=== PATIENT | female | born 1965 | race Caucasian/White ===

== ENCOUNTER 2018-07-23 13:03 | Emergency (ER) | payer OTHER, MEDICAID, SELFPAY ==
[2018-07-23 13:15] VITALS: BP 131/87; PULSE 89; RESP 14; TEMP 36.7; O2SAT 95
[2018-07-23 13:44] LABS: Add Manual Diff / Slide Review NO; Basophils Absolute Auto 100 /uL (0-100); Basophils Percent Auto 0.4 % (0-2); Eosinophils Absolute Auto 200 /uL (0-450); Hematocrit 39.3 % (36-46); Hemoglobin 12.9 g/dL (12.0-16.0); Lymphocytes Absolute Auto 2500 /uL (1100-4500); Lymphocytes Percent Auto 22.1 % (25-40); Mean Corpuscular HGB Conc 32.8 % (30-36); Mean Corpuscular Hemoglobin 27.9 PG (26-34); Monocytes Absolute Auto 700 /uL (0-900); Monocytes Percent Auto 6.2 % (3-14); Neutrophils Absolute Auto 7900 /uL (1500-7000); Neutrophils Percent Auto 69.3 % (50-75); Platelet Count 304 X10^3/uL (150-400); Red Blood Cell Count 4.62 X10^6/uL (4.0-5.2); Red Cell Distribution Width 15.3 % (11.6-14.8); White Blood Cell Count 11.4 X10^3/uL (4.5-11.0)
[2018-07-23 13:57] LABS: BUN Creatinine Ratio 18.3 (6-22); Blood Urea Nitrogen 11 mg/dL (7-17); Calcium 9.3 mg/dL (8.4-10.2); Carbon Dioxide 31 mmol/L (22-32); Chloride 102 mmol/L (98-107); Estimated Glomerular Filt Rate > 60.0 mL/min (>60); Glucose 131 mg/dL (70-100); HEMOLYSIS < 15 (0-50); Potassium 3.8 mmol/L (3.4-5.1); Sodium 139 mmol/L (137-145)
[2018-07-23 14:13] LABS: Bacteria Urine None Seen
[2018-07-23 14:15] LABS: Appearance Urine UA CLEAR; Bilirubin Urine UA NEGATIVE (NEGATIVE); Color Urine UA YELLOW; Glucose Urine UA NEGATIVE (Negative); Ketones Urine UA TRACE (NEGATIVE); Leukocyte Esterase Urine UA TRACE (NEGATIVE); Nitrite Urine UA POSITIVE (Negative); Occult Blood Urine UA 3+ (Negative); Protein Urine UA 3+ (Negative); Specific Gravity Urine UA >=1.030 (1.000-1.035)
[2018-07-23 14:28] LABS: RBC Urine 10-30/HPF (0-5/HPF); WBC Urine 5-10/HPF (0-5/HPF)
[2018-07-23 14:29] LABS: Culture Indicated Urine Specimen Cultured
--- NOTE | 2018-07-23 14:43 | DI.US.S_ITS ---
PROCEDURE: US PELVIC COMPLETE INDICATIONS: HEAVY BLEEDING X 2 WEEKS TECHNIQUE: Real-time scanning was performed of the pelvic organs, with image documentation. Additional endovaginal scanning was necessary due to incomplete visualization of the adnexal and endometrial structures by transabdominal scanning. COMPARISON: None. FINDINGS: Transabdominal scanning: Limited scanning through the kidneys shows no hydronephrosis. No pathologic free abdominal or pelvic fluid. Endovaginal scanning: Uterus: Uterus is normal in size at 8.1 x 5.1 x 7.1 cm. The endometrium measures 5 mm in combined thickness. Hypoechoic uterine lesions are seen, which are attributed to fibroids. They measure as follows: Mid anterior uterus, intramural, 1.5 x 0.9 x 1.7 cm Mid anterior uterus, intramural, 1.6 x 0.9 x 1 cm Ovaries: The right ovary measures 2.4 x 1.4 x 1.3 cm and demonstrates an unremarkable sonographic appearance. The left ovary is not seen. IMPRESSION: No imaging explanation is found for this patient's presenting symptoms. Intramural uterine fibroids are seen. Dictated by: Jason Murray M.D. on 07/23/2018 at 15:37 Approved by: Jason Murray M.D. on 07/23/2018 at 15:39
--- NOTE | 2018-07-23 14:46 | ED_ITS ---
HPI - Female Genitourinary <REGGIE Beltran-BC - Last Filed: 07/23/18 17:08> General Chief complaint: Vaginal Bleeding Stated complaint: Cough x 2wks Time Seen by Provider: 07/23/18 14:16 Source: patient and family Mode of arrival: ambulatory History of Present Illness HPI Narrative: The patient is a 52-year-old female with history of obesity who presents with chief complaint of heavy vaginal bleeding x2 weeks. She has no sexually transmitted infection concerns. She denies any vaginal discharge. She states she is bleeding through approximately 2 pads an hour. She states she has used to 5 pads so far today, just before 3:00 p.m.. She states she was a little bit lightheaded and dizzy when she stood up this morning. She had slight amount of nausea. She denies any current dizziness or nausea. She denies any control methods. She states she has had a dry cough for 2 weeks, possibly related to seasonal allergies. She states that her bleeding is worse when she is coughing. She states she had an episode like this back in her 30s. She states the hysterectomy was recommended, but she never followed through with that. She denies any history of fibroids, PCOS etc. Related Data Home Medications Medication Instructions Recorded Confirmed citalopram 40 mg PO DAILY 07/23/18 07/23/18 hydroxyzine pamoate 50 mg PO TID PRN 07/23/18 07/23/18 lisinopril 20 mg PO DAILY 07/23/18 07/23/18 Allergies Allergy/AdvReac Type Severity Reaction Status Date / Time Penicillins Allergy Intermediate Hives Verified 07/23/18 13:22 Review of Systems <ROXI Beltran - Last Filed: 07/23/18 17:08> Review of Systems GENERAL: Denies chills, fatigue, malaise, fever, sweats. HEENT: Denies sinus pain, ear pain, sore throat, difficulty swallowing, dizziness. RESPIRATORY: Denies dyspnea, cough, wheezing, hemoptysis, sputum. CARDIOVASCULAR: Denies chest pain, palpitations, orthopnea, edema, GASTROINTESTINAL: See HPI : See HPI MUSCULOSKELETAL: denies weakness, joint pain, or bony pain SKIN: Denies rash, skin lesions, or other NEUROLOGIC: Denies weakness, headache, numbness, change in speech, confusion, seizures, incoordination. PSYCHIATRIC: No concerning psychosocial issues. 12 point review of systems is negative except for those stated above PFSH <ROXI Beltran - Last Filed: 07/23/18 17:08> Medical History Anxiety (Acute) Hypertension (Acute) Social History Smoking Status: Never smoker Social History Smoking Status: Never smoker Exam <ROXI Beltran - Last Filed: 07/23/18 17:08> Narrative Exam Narrative: GENERAL: Obese female lying on stretcher HEAD: Atraumatic. Normocephalic. No temporal or scalp tenderness. EYES: Pupils equal round and reactive. Extraocular motions intact. No scleral icterus. No injection or drainage. ENT: Nose without bleeding, purulent drainage or septal hematoma. Throat without erythema, tonsillar hypertrophy or exudate. Uvula midline. Airway patent. NECK: Trachea midline. No JVD or lymphadenopathy. Supple, nontender, no meningeal signs. CARDIOVASCULAR: Regular rate and rhythm without murmurs, gallops, or rubs. RESPIRATORY: Clear to auscultation. Breath sounds equal bilaterally. No wheezes, rales, or rhonchi. No cough. No increased respiratory effort. No accessory muscle use. No stridor. GASTROINTESTINAL: Abdomen soft, non-tender, nondistended. Active bowel sounds all 4 quadrants No hepato-splenomegaly, or palpable masses. No guarding. EXTREMITIES: No clubbing, cyanosis, or edema. No joint tenderness, effusion, or edema noted. BACK: Nontender without deformity or crepitance. No flank tenderness. NEURO: AOx3. SKIN: No rash or erythema. Initial Vital Signs Initial Vital Signs: Vital Signs Temperature 98.1 F 07/23/18 13:15 Pulse Rate 89 07/23/18 13:15 Respiratory Rate 14 07/23/18 13:15 Blood Pressure 131/87 07/23/18 13:15 Pulse Oximetry 95 07/23/18 13:15 <Emily Howe DO - Last Filed: 07/26/18 21:47> Initial Vital Signs Initial Vital Signs: Vital Signs Temperature 98.1 F 07/23/18 13:15 Pulse Rate 89 07/23/18 13:15 Respiratory Rate 14 07/23/18 13:15 Blood Pressure 131/87 07/23/18 13:15 Pulse Oximetry 95 07/23/18 13:15 Course <ROXI Beltran - Last Filed: 07/23/18 17:08> Orders Ordered: ED Orders 07/23/18 13:35 Basic Metabolic Panel Stat CBC [Complete Blood Count AUTO DIFF] Stat 07/23/18 14:00 Urinalysis and Microscopic Stat Urine Culture Stat 07/23/18 14:43 US pelvic complete Stat Vital Signs - 8 hr 07/23/18 13:15 07/23/18 16:41 Temperature 98.1 F Pulse Rate 89 78 Pulse Rate [Orthostatic Lying] 78 Pulse Rate [Orthostatic Sitting] 75 Pulse Rate [Orthostatic Standing] 86 Respiratory Rate 14 20 Blood Pressure 131/87 Blood Pressure [Orthostatic Lying] 130/72 Blood Pressure [Orthostatic Sitting] 145/95 H Blood Pressure [Orthostatic Standing] 142/95 H Blood Pressure [Right Arm] 130/72 Pulse Oximetry 95 95 <Emily Howe DO - Last Filed: 07/26/18 21:47> Orders Ordered: ED Orders 07/23/18 13:35 Basic Metabolic Panel Stat CBC [Complete Blood Count AUTO DIFF] Stat 07/23/18 14:00 Urinalysis and Microscopic Stat Urine Culture Stat 07/23/18 14:43 US pelvic complete Stat Vital Signs - 8 hr 07/23/18 13:15 07/23/18 16:41 Temperature 98.1 F Pulse Rate 89 78 Pulse Rate [Orthostatic Lying] 78 Pulse Rate [Orthostatic Sitting] 75 Pulse Rate [Orthostatic Standing] 86 Respiratory Rate 14 20 Blood Pressure 131/87 Blood Pressure [Orthostatic Lying] 130/72 Blood Pressure [Orthostatic Sitting] 145/95 H Blood Pressure [Orthostatic Standing] 142/95 H Blood Pressure [Right Arm] 130/72 Pulse Oximetry 95 95 MDM - Female Genitourinary <ROXI Beltran - Last Filed: 07/23/18 17:08> Lab Data Result diagrams: 07/23/18 13:35 07/23/18 13:35 Lab Results 07/23/18 07/23/18 07/23/18 Range/Units 13:35 13:35 14:00 WBC 11.4 H (4.5-11.0) X10^3/uL RBC 4.62 (4.0-5.2) X10^6/uL Hgb 12.9 (12.0-16.0) g/dL Hct 39.3 (36-46) % MCV 85.0 (80-100) fL MCH 27.9 (26-34) PG MCHC 32.8 (30-36) % RDW 15.3 H (11.6-14.8) % Plt Count 304 (150-400) X10^3/uL Neut % (Auto) 69.3 (50-75) % Lymph % (Auto) 22.1 L (25-40) % [place] % (Auto) 6.2 (3-14) % Eos % (Auto) 2.0 (2-4) % Baso % (Auto) 0.4 (0-2) % Neut # (Auto) 7900 H (3610-8685) /uL Lymph # (Auto) 2500 (2589-5306) /uL [place] # (Auto) 700 (0-900) /uL Eos # (Auto) 200 (0-450) /uL Baso # (Auto) 100 (0-100) /uL Sodium 139 (137-145) mmol/L Potassium 3.8 (3.4-5.1) mmol/L Chloride 102 (98-107) mmol/L Carbon Dioxide 31 (22-32) mmol/L BUN 11 (7-17) mg/dL Creatinine 0.60 (0.52-1.04) mg/dL Estimated GFR > 60.0 (>60) mL/min BUN/Creatinine Ratio 18.3 (6-22) Glucose 131 H (70-100) mg/dL Calcium 9.3 (8.4-10.2) mg/dL Urine Color Yellow Urine Appearance Clear Urine pH 5.0 (4.5-8.0) Ur Specific Phillips >=1.030 H (1.000-1.035) Urine Protein 3+ H (Negative) Urine Glucose (UA) Negative (Negative) g/dL Urine Ketones Trace H (NEGATIVE) Urine Occult Blood 3+ H (Negative) Urine Nitrate Positive H (Negative) Urine Bilirubin Negative (NEGATIVE) Urine Urobilinogen 1.0 (0.2) E.U./dL Ur Leukocyte Esterase Trace H (NEGATIVE) Urine RBC 10-30/hpf H (0-5/HPF) Urine WBC 5-10/hpf H (0-5/HPF) Urine Bacteria None seen (None) Ur Culture Indicated? Specimen cultured Point of Care Testing Test Results Negative Imaging Data Pelvic ultrasound: Radiologist's impression: Daisy Pacheco 52 F 1965 [place] [address] Ultrasound Report Signed Patient: Daisy Pacheco [facility]#: [id number] : 1965Acct:[id number] Age/Sex: 52 / FDate of Service: 07/23/18 Loc: ED Accession Number: [id number] Procedure: US pelvic complete Ordering Provider: Mercedes Mancia- PROCEDURE: US PELVIC COMPLETE INDICATIONS: HEAVY BLEEDING X 2 WEEKS TECHNIQUE: Real-time scanning was performed of the pelvic organs, with image documentation. Additional endovaginal scanning was necessary due to incomplete visualization of the adnexal and endometrial structures by transabdominal scanning. COMPARISON: None. FINDINGS: Transabdominal scanning: Limited scanning through the kidneys shows no hydronephrosis. No pathologic free abdominal or pelvic fluid. Endovaginal scanning: Uterus: Uterus is normal in size at 8.1 x 5.1 x 7.1 cm. The endometrium measures 5 mm in combined thickness. Hypoechoic uterine lesions are seen, which are attributed to fibroids. They measure as follows: Mid anterior uterus, intramural, 1.5 x 0.9 x 1.7 cm Mid anterior uterus, intramural, 1.6 x 0.9 x 1 cm Ovaries: The right ovary measures 2.4 x 1.4 x 1.3 cm and demonstrates an unremarkable sonographic appearance. The left ovary is not seen. IMPRESSION: No imaging explanation is found for this patient's presenting s ymptoms. Intramural uterine fibroids are seen. Dictated by: Jason Murray M.D. on 07/23/2018 at 15:37 Approved by: Jason Murray M.D. on 07/23/2018 at 15:39 MDM Narrative Medical decision making narrative: The patient is a 52-year-old female Who presents with chief complaint of vaginal bleeding as well as coughing. She declined an x-ray for her cough. I did CBC CMP which illustrated a good H&H despite 2 weeks of bleeding. She declines any pelvic exam in the emergency department. I discussed that this could help me determine what she needs, but she still declined. Ultrasound shows fibroids. She had normal orthostatic vitals. She is hemodynamically stable throughout her stay in the emergency department. I encouraged her to follow up with primary care provider. She states she has no OBGYN she can follow up with as well. Discussed use of Premarin with Dr Howe and elected to defer to primary care provider especially given patient's declination a pelvic exam. She does have signs of infection on her urine, but does not want to be treated at this point time she has no symptoms. Urine culture is pending. Discussed at length return precautions of fever, worsening, acute concerns. Patient has no questions or concerns upon discharge. <Emily Howe, - Last Filed: 07/26/18 21:47> Lab Data Lab Results 07/23/18 07/23/18 07/23/18 Range/Units 13:35 13:35 14:00 WBC 11.4 H (4.5-11.0) X10^3/uL RBC 4.62 (4.0-5.2) X10^6/uL Hgb 12.9 (12.0-16.0) g/dL Hct 39.3 (36-46) % MCV 85.0 (80-100) fL MCH 27.9 (26-34) PG MCHC 32.8 (30-36) % RDW 15.3 H (11.6-14.8) % Plt Count 304 (150-400) X10^3/uL Neut % (Auto) 69.3 (50-75) % Lymph % (Auto) 22.1 L (25-40) % [place] % (Auto) 6.2 (3-14) % Eos % (Auto) 2.0 (2-4) % Baso % (Auto) 0.4 (0-2) % Neut # (Auto) 7900 H (2749-6918) /uL Lymph # (Auto) 2500 (4240-7039) /uL [place] # (Auto) 700 (0-900) /uL Eos # (Auto) 200 (0-450) /uL Baso # (Auto) 100 (0-100) /uL Sodium 139 (137-145) mmol/L Potassium 3.8 (3.4-5.1) mmol/L Chloride 102 (98-107) mmol/L Carbon Dioxide 31 (22-32) mmol/L BUN 11 (7-17) mg/dL Creatinine 0.60 (0.52-1.04) mg/dL Estimated GFR > 60.0 (>60) mL/min BUN/Creatinine Ratio 18.3 (6-22) Glucose 131 H (70-100) mg/dL Calcium 9.3 (8.4-10.2) mg/dL Urine Color Yellow Urine Appearance Clear Urine pH 5.0 (4.5-8.0) Ur Specific [place] >=1.030 H (1.000-1.035) Urine Protein 3+ H (Negative) Urine Glucose (UA) Negative (Negative) g/dL Urine Ketones Trace H (NEGATIVE) Urine Occult Blood 3+ H (Negative) Urine Nitrate Positive H (Negative) Urine Bilirubin Negative (NEGATIVE) Urine Urobilinogen 1.0 (0.2) E.U./dL Ur Leukocyte Esterase Trace H (NEGATIVE) Urine RBC 10-30/hpf H (0-5/HPF) Urine WBC 5-10/hpf H (0-5/HPF) Urine Bacteria None seen (None) Ur Culture Indicated? Specimen cultured Point of Care Testing Test Results Negative Discharge Plan Departure Patient Disposition: Home Clinical Impression: Vaginal bleeding, Cough Discharge Date/Time: 07/23/18 17:02 Interventions: ED Discharge Assessment Last Done: 07/23/18 17:01 Instructions: DI for Cough -- Adult, DI for Uterine Fibroids, DI for Vaginal Bleeding Activity Restrictions/Additional Instructions: Your pelvic ultrasound shows fibroids. Your blood counts are stable. Please follow up with her primary care provider soon as possible for further workup regarding her vaginal bleeding Please come back to the emergency department for any acute concerns such as chest pain, shortness of breath etc. Please follow up with her primary care provider regarding your cough as you declined x-ray today Please monitor for fever, shortness of breath or signs of worsening respiratory status Prescriptions: No Action citalopram 40 mg tablet 40 mg PO DAILY RF: 0 lisinopril 20 mg tablet 20 mg PO DAILY RF: 0 hydroxyzine pamoate 50 mg capsule 50 mg PO TID PRN (Reason: Anxiety) RF: 0 Referrals: Lexy Dela Cruz DO [Primary Care Provider] - <Emily Howe DO - Last Filed: 07/26/18 21:47> Cosign ED Attending Jackieature Attestation: I was immediately available in the department for consultation. Documentation has been reviewed. I agree with assessment and plan.
[2018-07-23 16:41] VITALS: BP 130/72; BP 142/95; BP 145/95; PULSE 75; PULSE 78; PULSE 86; RESP 20; O2SAT 95
== END 2018-07-23 17:02 | disposition home or self-care (01) ==
PROVIDERS: Emergency Medicine; Emergency Provider Nurse Practitioner Family; PCP Family Medicine
DX: N93.9 Abnormal uterine and vaginal bleeding, unspecified (principal); R05 Cough; R11.0 Nausea; R42 Dizziness and giddiness
CPT/HCPCS: 36415; 76830; 76856; 80048; 81001; 81025; 85025; 87077; 87086; 87186; 99283; 99284